=== PATIENT | male | born 1995 | race Caucasian/White ===

== ENCOUNTER 2016-08-14 01:40 | Emergency (ER) | payer BC ==
[~2016-08-14] VITALS: Ht 170.2 cm; Wt 72.5 kg
[2016-08-14 01:43] VITALS: TEMP 36.8; Ht 170.2 cm; Wt 72.5 kg
[2016-08-14] MEDS ORDERED: LORAZEPAM 2 MG/ML 1 ML VIAL IV STA (01:58)
[2016-08-14] MEDS ORDERED: SODIUM CHLORIDE 0.9% 1000ML 1,000 ML IV ONE (02:00)
[2016-08-14 02:07] LABS: BASO % 0.2 %; BASO ABS # 0.02 K/uL (0-0.2); COMPLETE YES; EOS % 1.8 %; IG% 0.2 %; LYMPH % 26.7 %; LYMPH ABS # 2.58 K/uL (1.2-3.4); MEAN CELL VOLUME 80.4 fL (80-100); MEAN CORPUSCULAR HEMOGLOBIN 29.8 pg (25-34); MEAN CORPUSCULAR HGB CONC 37.1 g/dl (32-36); MEAN PLATELET VOLUME 8.9 fL (7.4-10.4); MONO % 7.5 %; NEUT % 63.6 %; PLATELET COUNT 168 K/uL (130-400); WHITE BLOOD COUNT 9.68 K/uL (4.8-10.8)
[2016-08-14 02:27] LABS: BUN/CREATININE RATIO 15.4 (10-20); CALCIUM 8.9 mg/dl (8.5-10.1); CREATININE 1.2 mg/dl (0.60-1.40); POTASSIUM 3.3 mmol/L (3.5-5.1)
[2016-08-14 02:38] LABS: ALB/GLOB RATIO 1.8 (0.9-2); THYROID STIMULATING HORMONE 3.35 uIu/ml (0.300-4.500)
[2016-08-14 03:50] VITALS: BP 127/74; PULSE 83; O2SAT 100
--- NOTE | 2016-08-14 07:27 | DIAGNOSTIC IMAGING REPORT ---
CHEST ONE VIEW PORTABLE HISTORY: Atypical Chest pain COMPARISON: None. FINDINGS: The lungs are clear. Cardiac silhouette is normal in size. No pleural effusions. No pneumothorax. IMPRESSION: No acute process. Electronically signed by: Henrik Canela M.D. 08/14/2016 7:25 AM Dictated Date/Time: 08/14/2016 7:24 AM
--- NOTE | 2016-08-17 23:02 | EMERGENCY ROOM VISIT NOTE ---
History First contact with patient: 01:48 Chief Complaint: ANXIETY Stated Complaint: CHEST DISCOMFORT, PAINS History of Present Illness The patient is a 21 year old male who presents to the Emergency Room with complaints of abdomen and chest pains off-and-on for the past 30 minutes. The patient states that he has had intermittent twinges of chest pain over the years , but he became very uncomfortable tonight. The patient then began having racing thoughts, and is concerned that he may be having anxiety attack. The patient does not have a distinct diagnosis of anxiety and is not medicated for this. He is a student and does not report increased stressors in life. No suicidal or homicidal ideation. No recent travel history. He rates his discomfort a 5/10. He states that he would like to know that he is not having a heart attack so that he is safe to go to sleep tonight. Review of Systems More than 10 systems were reviewed and otherwise negative with the exception of history of present illness. Past Medical/Surgical History No chronic medical disease Family History No pertinent family history Social History Smoking Status: Never Smoker Occupation Status: [employer] student Current/Historical Medications No Active Prescriptions or Reported Meds Allergies Coded Allergies: No Known Allergies (Unverified , 08/14/16) Physical Exam Vital Signs Date Time Temp Pulse Resp B/P Pulse Ox O2 Delivery O2 Flow Rate FiO2 08/14/16 03:50 83 18 127/74 100 08/14/16 02:43 88 18 100/65 100 Room Air 08/14/16 02:10 87 08/14/16 02:00 Room Air 08/14/16 01:43 36.8 104 20 164/99 97 Room Air Pain Rating (0-10): 0 Physical Exam VITALS: Vitals are noted on the nurse's note and reviewed by myself. Vital signs with intermittent tachycardia GENERAL: White male who is very anxious on examination. He is crying but cooperative with the exam. HEAD: Normocephalic atraumatic. EARS: External ear normal. External auditory canals clear, tympanic membranes pearly pulliam without erythema or effusion bilaterally. EYES: Pupils equal round and reactive to light and accommodation. Conjunctivae without injection, sclerae without icterus. Extraocular movements intact. NOSE: Patent, turbinates without inflammation or discharge. MOUTH: Mucous membranes moist. Tonsils are not enlarged. Pharynx without erythema, blood, or exudate. Uvula midline. Airway patent. NECK: Supple without nuchal rigidity. No lymphadenopathy. No thyromegaly. Cervical spine is nontender. HEART: Regular rate and rhythm without murmurs gallops or rubs. LUNGS: Clear to auscultation bilaterally without wheezes, rales or rhonchi. No retractions or accessory muscle use. ABDOMEN: Positive normal bowel sounds x 4. Soft, nontender, without masses or organomegaly. No guarding or rebound tenderness. MUSCULOSKELETAL: No muscle atrophy, erythema, or edema noted. Full range of motion without joint tenderness in all extremities. No tenderness to palpation. Normal gait. Strength 5/5 throughout. NEURO: Patient was alert and oriented to person place and time. CN II through XII grossly intact. Deep tendon reflexes 2+ throughout. No focal neurological deficits SKIN: The skin was without rashes, erythema, edema, or bruising. Capillary reflex less than 2 seconds. Medical Decision & Procedures ER Provider Diagnostic Interpretation: CHEST ONE VIEW PORTABLE HISTORY: Atypical Chest pain COMPARISON: None. FINDINGS: The lungs are clear. Cardiac silhouette is normal in size. No pleural effusions. No pneumothorax. IMPRESSION: No acute process. Laboratory Results 08/14/16 01:56 Red Blood Count 5.60, Mean Corpuscular Volume 80.4, Mean Corpuscular Hemoglobin 29.8, Mean Corpuscular Hemoglobin Concent 37.1, Mean Platelet Volume 8.9, Neutrophils (%) (Auto) 63.6, Lymphocytes (%) (Auto) 26.7, Monocytes (%) (Auto) 7.5, Eosinophils (%) (Auto) 1.8, Basophils (%) (Auto) 0.2, Neutrophils # (Auto) 6.16, Lymphocytes # (Auto) 2.58, Monocytes # (Auto) 0.73, Eosinophils # (Auto) 0.17, Basophils # (Auto) 0.02 08/14/16 01:56 Test 08/14/16 01:56 08/14/16 02:06 White Blood Count 9.68 K/uL (4.8-10.8) Red Blood Count 5.60 M/uL (4.7-6.1) Hemoglobin 16.7 g/dL (14.0-18.0) Hematocrit 45.0 % (42-52) Mean Corpuscular Volume 80.4 fL (80-100) Mean Corpuscular Hemoglobin 29.8 pg (25-34) Mean Corpuscular Hemoglobin Concent 37.1 g/dl (32-36) Platelet Count 168 K/uL (130-400) Mean Platelet Volume 8.9 fL (7.4-10.4) Neutrophils (%) (Auto) 63.6 % Lymphocytes (%) (Auto) 26.7 % Monocytes (%) (Auto) 7.5 % Eosinophils (%) (Auto) 1.8 % Basophils (%) (Auto) 0.2 % Neutrophils # (Auto) 6.16 K/uL (1.4-6.5) Lymphocytes # (Auto) 2.58 K/uL (1.2-3.4) Monocytes # (Auto) 0.73 K/uL (0.11-0.59) Eosinophils # (Auto) 0.17 K/uL (0-0.5) Basophils # (Auto) 0.02 K/uL (0-0.2) RDW Standard Deviation 35.0 fL (36.4-46.3) RDW Coefficient of Variation 12.1 % (11.5-14.5) Immature Granulocyte % (Auto) 0.2 % Immature Granulocyte # (Auto) 0.02 K/uL (0.00-0.02) Anion Gap 12.0 mmol/L (3-11) Est Creatinine Clear Calc Drug Dose 91.1 ml/min Estimated GFR () 99.6 Estimated GFR (Non- 85.9 BUN/Creatinine Ratio 15.4 (10-20) Calcium Level 8.9 mg/dl (8.5-10.1) Total Bilirubin 1.9 mg/dl (0.2-1) Aspartate Amino Transf (AST/SGOT) 14 U/L (15-37) Alanine Aminotransferase (ALT/SGPT) 26 U/L (12-78) Alkaline Phosphatase 61 U/L (45-117) Total Protein 7.6 gm/dl (6.4-8.2) Albumin 4.9 gm/dl (3.4-5.0) Globulin 2.7 gm/dl (2.5-4.0) Albumin/Globulin Ratio 1.8 (0.9-2) Lipase 166 U/L (73-393) Thyroid Stimulating Hormone (TSH) 3.350 uIu/ml (0.300-4.500) Bedside D-Dimer 48 ng/mlFEU (0-450) Bedside Troponin I 0.000 ng/ml (0-0.045) Medications Administered Medications (Trade) Dose Ordered Sig/[place] Route Start Time Stop Time Status Last Admin Dose Admin Lorazepam 1 mg 1 mg NOW STAT IV 08/14/16 01:58 08/14/16 02:00 DC 08/14/16 02:11 1 MG Sodium Chloride (Nss 1000ml) 1,000 ml @ 999 mls/hr Q1H1M ONCE IV 08/14/16 02:00 08/14/16 03:00 DC 08/14/16 02:08 999 MLS/HR ED Course Physical exam and history were performed. Nursing notes and EMR were reviewed. Patient appears to have central chest pain ongoing for the past 30 minutes. EKG was performed was normal sinus rhythm at 83 beats minute without ischemia or ectopy. The patient appears very anxious, but we were able to establish an IV and draw labs. The patient was given 1 mg IV Ativan and he was placed on the air sampling and monitoring. Chest x-ray did not show acute findings. The patient's blood work is as above and was reviewed. He does not have a significantly elevated white blood cell count, anemia, bandemia, or gross electrolyte imbalance. Troponin and d-dimer 1 are negative. TSH is normal. The patient did not have dysrhythmic episode on the air sampling and monitoring. The patient was monitored here in the ER for some time, and had complete resolution of his symptoms given time and Ativan. I discussed options of care with the patient, and he feels well for discharge home. The patient was asked to follow with [facility] with any ongoing or persisting symptoms. He was otherwise invited back to the ER with any new, worsening, or concerning episodes. The chart was completed utilizing [employer] Speech Voice Recognition Software. Grammatical errors, random word insertions, pronoun errors, and incomplete sentences are an occasional consequence of this system due to software limitations, ambient noise, and hardware issues. Any formal questions or concerns about the content, text, or information contained within the body of this dictation should be directly addressed to the provider for clarification. . Medical Decision Differential diagnosis includes, but is not limited to: Myocardial infarction, dysrhythmia, pericarditis, pneumothorax, aortic aneurysm/dissection, DVT/PE, anxiety, GERD, PUD, electrolyte imbalance, thyroid disorder, pneumonia, bronchitis, pancreatitis, and others Impression Primary Impression: Central chest pain Departure Information Dispostion Home / Self-Care Condition GOOD Prescriptions No Active Prescriptions or Reported Meds Forms HOME CARE DOCUMENTATION FORM, IMPORTANT VISIT INFORMATION Patient Instructions [facility] Additional Instructions You were seen and evaluated today on an emergency basis only. This is not a substitute for, or an effort to provide, complete comprehensive medical care. It is not possible to recognize and treat all injuries or illnesses in a single emergency department visit. For this reason it is recommended that you followup with [facility] or your primary care physician next week with any ongoing or persistent symptoms. Drink plenty of fluids and remain well hydrated. You are welcome to return to the emergency department anytime with new, worsening, or concerning symptoms.
== END 2016-08-14 03:51 | disposition home or self-care (01) ==
LOC: C.EDB 01:42 → C.EDA 03:51
DX: R07.9 Chest pain, unspecified (principal)